=== PATIENT | male | born 1985 | race African-American/Black ===

== ENCOUNTER 2023-07-01 14:47 | Emergency (ER) | payer MEDICARE, MEDICAID ==
[~2023-07-01] VITALS: Ht 177.8 cm; Wt 105.0 kg
[2023-07-01 15:14] VITALS: O2SAT 96
[2023-07-01] MEDS ORDERED: NALOXONE HCL 0.4MG/ML 1ML VIAL IV ONE (15:30)
[2023-07-01 15:54] LABS: BASOPHILS % 1.1 % (0.0-2.0); DIFFERENTIAL COMMENT 0; EOSINOPHILS % 0.6 % (0.0-5.0); HEMATOCRIT. 50.9 % (42.0-52.0); HEMOGLOBIN. 16.2 g/dL (14.0-18.0); LYMPHOCYTES % 10.4 % (20.0-50.0); MEAN CORPUSCULAR HEMOGLOBIN 27.2 pg (28.0-32.0); MEAN CORPUSCULAR HGB CONC 31.9 g/dL (31.0-37.0); MEAN CORPUSCULAR VOLUME 85.4 fL (80.0-94.0); MEAN PLATELET VOLUME 9.5 fl (7.4-10.4); MONOCYTES % 6.1 % (2.0-8.0); NEUTROPHILS % 81.8 % (40.0-76.0); PLATELET 200 x1000/uL (130-400); RED BLOOD CELL COUNT 5.97 mill/uL (4.7-6.1); RED CELL DISTRIBUTION WIDTH 14.8 % (11.6-14.6); WHITE BLOOD COUNT 8.3 x1000/uL (4.5-11.0)
[2023-07-01 16:06] LABS: ACETAMINOPHEN < 2 ug/mL (10-30); ALANINE AMINOTRANSFERASE 71 IU/L (10-49); ASPARTATE AMINOTRANSFERASE 29 IU/L (<34); BILIRUBIN TOTAL 0.6 mg/dL (0.1-1.0); CARBON DIOXIDE 25 mEq/L (21-32); CHLORIDE 102 mEq/L (98-107); CREATININE 1.2 mg/dL (0.6-1.3); GLUCOSE 166 mg/dL (70-105); POTASSIUM 3.8 mEq/L (3.5-5.1); PROTEIN TOTAL 8.4 g/dL (6.0-8.3); SODIUM 135 mEq/L (136-145); UREA NITROGEN BLOOD 13 mg/dL (9-23)
[2023-07-01 16:13] LABS: ETHANOL BLOOD < 10 mg/dL (<10)
[2023-07-01] MEDS ORDERED: LEVETIRACETAM 500MG PREMIX 100 ML IV ONE (17:30)
[2023-07-01] MEDS ORDERED: MIDAZOLAM 100MG/100ML PMX 100 ML IV STA (18:10)
[2023-07-01] MEDS ORDERED: MIDAZOLAM 100MG/100ML PREMIX IV PRN (18:15)
[2023-07-01 18:27] VITALS: BP 148/97; PULSE 102; RESP 18; TEMP 98.6
== END 2023-07-01 18:45 | disposition short-term general hospital (02) ==
LOC: ER 14:47
DX: I63.9 Cerebral infarction, unspecified (principal); R93.0 Abnormal findings on diagnostic imaging of skull and head, not elsewhere classified
CPT/HCPCS: 80053; 80307; 80329; 80320; 82962; 83880; 84443; 85025; 36415; 71045; 70450; 96365; 99291; J1953; J2310; 70496; J2250; G0480